=== PATIENT | male | born 1990 | race American Indian/Alaskan Native ===

== ENCOUNTER 2018-05-03 17:57 | Emergency (ER) | payer SELFPAY ==
[2018-05-03 18:22] VITALS: BMI 22.4
[2018-05-03 18:45] VITALS: BP 142/69; PULSE 81; RESP 18; TEMP 98.3; O2SAT 100
[2018-05-03] MEDS ORDERED: Tdap Vaccine 0.5 ml Vial (10-64 yrs) IM ONE ×2 (19:18→19:44)
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
== END 2018-05-03 20:35 | disposition left against medical advice (07) ==
LOC: MERGE 17:57 → C.ER 17:57
DX: S01.112A Laceration without foreign body of left eyelid and periocular area, initial encounter (principal); S00.531A Contusion of lip, initial encounter; Y04.0XXA Assault by unarmed brawl or fight, initial encounter